=== PATIENT | male | born 1940 | race African-American/Black ===

== ENCOUNTER 2018-03-11 13:27 | Inpatient (IN) ==
[2018-03-11] MEDS ORDERED: ONDANSETRON 4 MG/2 ML VIAL IV STA (14:20)
[2018-03-11 14:52] LABS: Basophils % 0.1 % (0.0-0.8); Eosinophils % 0.1 % (0.00-10.9); Hematocrit 29.9 VOL% (42.0-52.0); Hemoglobin 10.5 GM/DL (14.0-18.0); Immature Granulocytes % 0.4 %; Immature Granulocytes Absolute 0.05 #; Lymphocytes # 0.5 10*3/uL (1.4-4.0); Lymphocytes % 3.7 % (21.2-54.2); Mean Corpuscular HGB Conc 35.1 GM/DL (32-36); Mean Corpuscular Hemoglobin 30 PG (27-34); Mean Corpuscular Volume 84.7 FL (87-102); Mean Platelet Volume 9.9 FL (9.6-12.0); Monocytes # 1.2 10*3/uL (0.11-0.8); Monocytes % 9.2 % (1.7-12.7); Neutrophils # 11.1 10*3/uL (1.4-7.4); Neutrophils % 86.5 % (38.7-73.9); Platelet Count 233 T/CUMM (130-400); Red Blood Count 3.53 MC/CUMM (3.8-5.5); Red Cell Distribution Width 13.9 % (9.3-17.3); White Blood Count 12.8 T/CUMM (4-12)
[2018-03-11 15:23] LABS: Lymphocytes 1 % (20-55); Segmented Neutrophils 95 % (50-85); Total Cells Counted 100
[2018-03-11 15:24] LABS: Anisocytosis 1+
[2018-03-11 15:25] LABS: Target Cells Few
[2018-03-11 15:28] LABS: Apearance,Urine CLEAR (Clear); Bacteria,Urine Occasional /HPF (Few); Blood, Urine Negative (Negative); Glucose,Urine (UA) Negative (Negative); Ketones,Urine 20 mg/dL (Negative); Mucus,Urine Occasional /LPF (Occasional); Nitrite,Urine Negative (Negative); Protein,Urine 30 MG/DL; Squamous Epithelial Cell,Urine Occasional /HPF (0-10); Urine Color Amber (Yellow)
[2018-03-11 15:28] LABS: Hypochromasia Slight; Microcytosis Slight
[2018-03-11 15:29] LABS: Bilirubin,Urine Moderate mg/dL (Negative)
[2018-03-11 15:31] LABS: Platelet Estimate Normal
[2018-03-11 15:40] LABS: Albumin 2.9 G/DL (3.4-5.0); Bilirubin,Total 9.1 MG/DL (0.2-1.0); Calcium 9.4 MG/DL (8.5-10.1); Osmolality,Calculated 277.5 MOS/KG (273-304); Total Protein 7.5 G/DL (6.4-8.3)
[2018-03-11] MEDS ORDERED: ACETAMINOPHEN 325 MG TABLET PO PRN (16:24)
[2018-03-11] MEDS ORDERED: ONDANSETRON 4 MG/2 ML VIAL IV PRN (16:24)
[2018-03-11] MEDS: SODIUM CHLORIDE 0.9% 1,000 ML IV SCH (17:52)
[2018-03-11] MEDS ORDERED: MORPHINE 4 MG/1 ML VIAL IV PRN (17:58)
[2018-03-12 02:51] LABS: Basophils % 0.2 % (0.0-0.8); Eosinophils % 0.2 % (0.00-10.9); Hematocrit 28.1 VOL% (42.0-52.0); Hemoglobin 9.8 GM/DL (14.0-18.0); Immature Granulocytes % 0.4 %; Immature Granulocytes Absolute 0.04 #; Lymphocytes # 1.5 10*3/uL (1.4-4.0); Lymphocytes % 14.8 % (21.2-54.2); Mean Corpuscular HGB Conc 34.9 GM/DL (32-36); Mean Corpuscular Hemoglobin 29 PG (27-34); Mean Corpuscular Volume 82.6 FL (87-102); Mean Platelet Volume 10.5 FL (9.6-12.0); Monocytes # 1.4 10*3/uL (0.11-0.8); Monocytes % 13.1 % (1.7-12.7); Neutrophils # 7.4 10*3/uL (1.4-7.4); Neutrophils % 71.3 % (38.7-73.9); Platelet Count 235 T/CUMM (130-400); White Blood Count 10.3 T/CUMM (4-12)
[2018-03-12 02:59] LABS: PT Patient Result 10.7 SECS
[2018-03-12 03:10] LABS: Bilirubin,Direct 6.58 MG/DL (0.0-0.20); Bilirubin,Indirect 1.6 MG/DL (0.0-1.0); Bilirubin,Total 8.2 MG/DL (0.2-1.0)
[2018-03-12 03:20] LABS: Albumin 2.5 G/DL (3.4-5.0); Bilirubin,Total 7.8 MG/DL (0.2-1.0); Calcium 9.1 MG/DL (8.5-10.1); Osmolality,Calculated 281.1 MOS/KG (273-304); Potassium 3.6 MMOL/L (3.5-5.1); Risk Ratio 4.3; Total Protein 6.3 G/DL (6.4-8.3); VLDL CHOLESTEROL 12.6 MG/DL
[2018-03-12] MEDS: PANTOPRAZOLE 40 MG TABLET PO SCH (10:21)
[2018-03-12] MEDS: SODIUM CHLORIDE 0.9% 1,000 ML IV SCH ×2 (10:22→21:49)
[2018-03-12] MEDS ORDERED: INDOMETHACIN SUPP 50 MG SUPP RECTAL ONE (11:56)
[2018-03-12] MEDS ORDERED: fentaNYL 100 MCG/2 ML VIAL ONE (12:22)
[2018-03-12] MEDS ORDERED: GLUCAGON 1 MG VIAL ONE (13:11)
[2018-03-13 04:55] LABS: Basophils % 0.2 % (0.0-0.8); Eosinophils % 0.3 % (0.00-10.9); Hemoglobin 8.9 GM/DL (14.0-18.0); Immature Granulocytes % 0.5 %; Immature Granulocytes Absolute 0.04 #; Lymphocytes # 1.2 10*3/uL (1.4-4.0); Lymphocytes % 14.2 % (21.2-54.2); Mean Corpuscular HGB Conc 34.2 GM/DL (32-36); Mean Corpuscular Hemoglobin 29 PG (27-34); Mean Corpuscular Volume 83.3 FL (87-102); Mean Platelet Volume 10.5 FL (9.6-12.0); Monocytes # 1.1 10*3/uL (0.11-0.8); Monocytes % 12.4 % (1.7-12.7); Neutrophils # 6.3 10*3/uL (1.4-7.4); Neutrophils % 72.4 % (38.7-73.9); Platelet Count 222 T/CUMM (130-400); Red Blood Count 3.12 MC/CUMM (3.8-5.5); Red Cell Distribution Width 14.2 % (9.3-17.3); White Blood Count 8.7 T/CUMM (4-12)
[2018-03-13 05:21] LABS: Albumin 2.3 G/DL (3.4-5.0); Bilirubin,Total 6.9 MG/DL (0.2-1.0); Calcium 8.7 MG/DL (8.5-10.1); Osmolality,Calculated 284.8 MOS/KG (273-304); Total Protein 6.1 G/DL (6.4-8.3)
[2018-03-13] MEDS ORDERED: ROCURONIUM 100 MG/10 ML VIAL IV ONE (09:00)
[2018-03-13] MEDS ORDERED: PROPOFOL 200 MG/20 ML VIAL IV ONE (09:00)
[2018-03-13] MEDS ORDERED: PHENYLEPHRINE 1 MG/10 ML SYRINGE IV ONE (09:00)
[2018-03-13] MEDS ORDERED: LIDOCAINE 1% 5 ML VIAL ONE (09:00)
[2018-03-13] MEDS ORDERED: SUCCINYLCHOLINE 200 MG/10 ML VIAL ONE (09:00)
[2018-03-13] MEDS ORDERED: ONDANSETRON 4 MG/2 ML VIAL ONE (09:00)
[2018-03-13] MEDS: PANTOPRAZOLE 40 MG TABLET PO SCH (10:07)
[2018-03-13] MEDS: SODIUM CHLORIDE 0.9% 1,000 ML IV SCH (11:31)
[2018-03-14] MEDS: SODIUM CHLORIDE 0.9% 1,000 ML IV SCH (00:51)
[2018-03-14] MEDS: PANTOPRAZOLE 40 MG TABLET PO SCH (09:14)
[2018-03-14] MEDS ORDERED: diphenhydrAMINE 50 MG/1 ML VIAL IV ONE (10:00)
[2018-03-14] MEDS ORDERED: methylPREDNISolone SOD SUC 125 MG/2 ML VIAL IV ONE (10:00)
[2018-03-14] MEDS ORDERED: FAMOTIDINE 20 MG/2 ML VIAL IV SCH (10:00)
[2018-03-14 11:57] VITALS: BP 145/76
== END 2018-03-14 14:20 | disposition home or self-care (01) | DRG 436 ==
LOC: N.ED 13:27 → N.EDINP 16:24 → N.2E 18:00
PROVIDERS: ADMIT Internal Medicine; ATTEND Internal Medicine

== ENCOUNTER 2018-04-02 10:02 | Inpatient (IN) ==
[2018-04-02 10:43] LABS: Basophils % 0.4 % (0.0-0.8); Eosinophils % 0.4 % (0.00-10.9); Hematocrit 34.4 VOL% (42.0-52.0); Hemoglobin 11.3 GM/DL (14.0-18.0); Immature Granulocytes % 0.4 %; Immature Granulocytes Absolute 0.03 #; Lymphocytes # 1.7 10*3/uL (1.4-4.0); Lymphocytes % 20.5 % (21.2-54.2); Mean Corpuscular HGB Conc 32.8 GM/DL (32-36); Mean Corpuscular Hemoglobin 29 PG (27-34); Mean Corpuscular Volume 86.6 FL (87-102); Mean Platelet Volume 9.3 FL (9.6-12.0); Monocytes % 12.2 % (1.7-12.7); Neutrophils # 5.6 10*3/uL (1.4-7.4); Neutrophils % 66.1 % (38.7-73.9); Platelet Count 287 T/CUMM (130-400); Red Blood Count 3.97 MC/CUMM (3.8-5.5); Red Cell Distribution Width 13.3 % (9.3-17.3); White Blood Count 8.5 T/CUMM (4-12)
[2018-04-02 11:07] LABS: Albumin 3.5 G/DL (3.4-5.0); Bilirubin,Total 1.4 MG/DL (0.2-1.0); Calcium 9.7 MG/DL (8.5-10.1); Potassium 3.6 MMOL/L (3.5-5.1); Total Protein 8.2 G/DL (6.4-8.3)
[2018-04-02 11:42] LABS: Apearance,Urine CLEAR (Clear); Bilirubin,Urine Negative (Negative); Blood, Urine Small mg/dL (Negative); Glucose,Urine (UA) Negative (Negative); Ketones,Urine 5 mg/dL (Negative); Mucus,Urine Occasional /LPF (Occasional); Nitrite,Urine Negative (Negative); Protein,Urine 30 MG/DL; RBC,Urine 1 /HPF (0-4); Squamous Epithelial Cell,Urine Occasional /HPF (0-10); Urine Color Yellow (Yellow); Urine Specific Gravity 1.011 (1.001-1.035); WBC,Urine 6 /HPF (0-6)
[2018-04-02 11:51] LABS: Barbiturates Screen,Urine Negative (Negative); Benzodiazepines Screen,Urine Negative (Negative); Cannabinoid Screen,Urine Negative (Negative); Opiate Screen,Urine Negative (Negative); Phencyclidine Screen,Urine Negative (Negative)
[2018-04-02] MEDS ORDERED: ACETAMINOPHEN 325 MG TABLET PO PRN (13:49)
[2018-04-02] MEDS ORDERED: LACTULOSE 20 GM/30 ML UDCUP PO PRN (13:49)
[2018-04-02 14:18] LABS: Thyroid Stimulating Hormone 1.42 uIU/ml (0.358-3.74)
[2018-04-02] MEDS: ENOXAPARIN 40 MG/0.4 ML SYRINGE SUBCUT SCH (14:18)
[2018-04-02] MEDS: cefTRIAXone 1,000 MG in SYRINGE 1 EACH IV SCH (14:19)
[2018-04-02 15:40] LABS: % Iron Saturation 20.1 % (18-50)
[2018-04-02 15:49] LABS: Folate 15.4 NG/ML (5.4-24.0)
[2018-04-02] MEDS ORDERED: LORazepam 2 MG/1 ML VIAL ONE ×2 (20:57→21:00)
[2018-04-02] MEDS ORDERED: LORazepam 2 MG/1 ML VIAL IV ONE ×3 (20:59→21:35)
[2018-04-02] MEDS ORDERED: LORazepam 2 MG/1 ML VIAL IM ONE (21:02)
[2018-04-02] MEDS ORDERED: PHENYTOIN INJ 1,000 MG in SODIUM CHLORIDE 0.9% 100 ML IV ONE (21:08)
[2018-04-02] MEDS ORDERED: THIAMINE INJ 100 MG, FOLIC ACID INJ 1 MG, MULTIVITAMIN INJ 10 ML in SODIUM CHLORIDE 0.9... IV SCH (21:30)
[2018-04-02] MEDS: DEXTROSE 5% NACL 0.45% 1,000 ML IV SCH (21:35)
[2018-04-02 21:42] LABS: Basophils % 0.3 % (0.0-0.8); Eosinophils # 0.1 10*3/uL (0.0-0.87); Eosinophils % 0.9 % (0.00-10.9); Hematocrit 31.4 VOL% (42.0-52.0); Hemoglobin 10.6 GM/DL (14.0-18.0); Immature Granulocytes % 0.5 %; Immature Granulocytes Absolute 0.04 #; Lymphocytes % 23.6 % (21.2-54.2); Mean Corpuscular HGB Conc 33.8 GM/DL (32-36); Mean Corpuscular Hemoglobin 29 PG (27-34); Mean Corpuscular Volume 86.5 FL (87-102); Mean Platelet Volume 9.9 FL (9.6-12.0); Monocytes # 0.9 10*3/uL (0.11-0.8); Monocytes % 10.7 % (1.7-12.7); Neutrophils # 5.5 10*3/uL (1.4-7.4); Platelet Count 290 T/CUMM (130-400); Red Blood Count 3.63 MC/CUMM (3.8-5.5); Red Cell Distribution Width 13.7 % (9.3-17.3); White Blood Count 8.6 T/CUMM (4-12)
[2018-04-02] MEDS ORDERED: LORazepam 2 MG/1 ML VIAL IV PRN (21:47)
[2018-04-02 21:58] LABS: Calcium 9.1 MG/DL (8.5-10.1)
[2018-04-02 21:59] LABS: Blood Urea Nitrogen 9 MG/DL (7-18); Glucose 102 MG/DL (74-106); Osmolality,Calculated 286.7 MOS/KG (273-304); Potassium 3.6 MMOL/L (3.5-5.1); Sodium 145 MMOL/L (136-145)
[2018-04-02] MEDS: PHENYTOIN 100 MG/2 ML VIAL IV SCH (23:07)
[2018-04-03 05:31] LABS: Albumin 2.7 G/DL (3.4-5.0); Bilirubin,Total 0.9 MG/DL (0.2-1.0); Calcium 8.3 MG/DL (8.5-10.1); Osmolality,Calculated 282.8 MOS/KG (273-304); Potassium 3.6 MMOL/L (3.5-5.1); Total Protein 6.8 G/DL (6.4-8.3); VLDL CHOLESTEROL 9.8 MG/DL
[2018-04-03] MEDS: DEXTROSE 5% NACL 0.45% 1,000 ML IV SCH ×3 (05:43→22:14)
[2018-04-03] MEDS: PHENYTOIN 100 MG/2 ML VIAL IV SCH ×3 (05:44→22:14)
[2018-04-03 06:06] LABS: Basophils % 0.4 % (0.0-0.8); Eosinophils # 0.1 10*3/uL (0.0-0.87); Hematocrit 28.5 VOL% (42.0-52.0); Hemoglobin 9.6 GM/DL (14.0-18.0); Immature Granulocytes % 0.3 %; Immature Granulocytes Absolute 0.02 #; Lymphocytes # 1.7 10*3/uL (1.4-4.0); Lymphocytes % 24.1 % (21.2-54.2); Mean Corpuscular HGB Conc 33.7 GM/DL (32-36); Mean Corpuscular Hemoglobin 29 PG (27-34); Mean Corpuscular Volume 86.1 FL (87-102); Mean Platelet Volume 9.5 FL (9.6-12.0); Monocytes # 0.9 10*3/uL (0.11-0.8); Monocytes % 11.9 % (1.7-12.7); Neutrophils # 4.4 10*3/uL (1.4-7.4); Neutrophils % 61.3 % (38.7-73.9); Platelet Count 230 T/CUMM (130-400); Red Blood Count 3.31 MC/CUMM (3.8-5.5); Red Cell Distribution Width 13.5 % (9.3-17.3); White Blood Count 7.2 T/CUMM (4-12)
[2018-04-03] MEDS ORDERED: THIAMINE 200 MG/2 ML VIAL IV SCH (09:00)
[2018-04-03] MEDS ORDERED: ACETAMINOPHEN 325 MG TABLET PO ONE (10:51)
[2018-04-03] MEDS ORDERED: diphenhydrAMINE CAP 25 MG CAPSULE PO ONE (10:51)
[2018-04-03] MEDS ORDERED: INFLUENZA VIRUS VACCINE 0.5 ML SYRINGE IM ONE (11:35)
[2018-04-03 14:24] LABS: Appearance,CSF Clear; Lymphocytes,CSF 67 %; Monocytes,CSF 33 %; Red Blood Cell,CSF < 1 C/CUMM; White Blood Cell,CSF 2 C/CUMM
[2018-04-03] MEDS: cefTRIAXone 1,000 MG in SYRINGE 1 EACH IV SCH (14:57)
[2018-04-03] MEDS ORDERED: PHENYLEPHRINE DRIP 40 MG/250 ML PREMIX IV ONE (21:14)
[2018-04-03] MEDS ORDERED: PHENYLEPHRINE DRIP 40 MG/250 ML PREMIX IV PRN (21:30)
[2018-04-03] MEDS ORDERED: SODIUM CHLORIDE 0.9% 1,000 ML IV ONE (21:31)
[2018-04-03 21:36] LABS: Basophils % 0.2 % (0.0-0.8); Eosinophils # 0.1 10*3/uL (0.0-0.87); Eosinophils % 1.1 % (0.00-10.9); Hematocrit 29.3 VOL% (42.0-52.0); Hemoglobin 9.5 GM/DL (14.0-18.0); Immature Granulocytes % 0.2 %; Immature Granulocytes Absolute 0.02 #; Lymphocytes # 2.8 10*3/uL (1.4-4.0); Mean Corpuscular HGB Conc 32.4 GM/DL (32-36); Mean Corpuscular Hemoglobin 28 PG (27-34); Mean Corpuscular Volume 87.7 FL (87-102); Mean Platelet Volume 9.6 FL (9.6-12.0); Monocytes # 1.1 10*3/uL (0.11-0.8); Monocytes % 10.7 % (1.7-12.7); Neutrophils # 6.4 10*3/uL (1.4-7.4); Neutrophils % 60.8 % (38.7-73.9); Platelet Count 234 T/CUMM (130-400); Red Blood Count 3.34 MC/CUMM (3.8-5.5); Red Cell Distribution Width 13.6 % (9.3-17.3); White Blood Count 10.5 T/CUMM (4-12)
[2018-04-03] MEDS: MEMANTINE 5 MG TABLET PO SCH (22:14)
[2018-04-03] MEDS: QUEtiapine 25 MG TABLET PO SCH (22:14)
[2018-04-04 00:31] LABS: Lactic Acid 2.2 MMOL/L (0.4-2.0)
[2018-04-04] MEDS: DEXTROSE 5% NACL 0.45% 1,000 ML IV SCH ×3 (03:59→18:41)
[2018-04-04] MEDS: PHENYTOIN 100 MG/2 ML VIAL IV SCH ×3 (05:47→20:34)
[2018-04-04] MEDS: MEMANTINE 5 MG TABLET PO SCH ×2 (09:07→20:24)
[2018-04-04] MEDS: THIAMINE 200 MG/2 ML VIAL IV SCH (09:10)
[2018-04-04 09:59] LABS: HIV Antigen/Antibody Result Nonreactive (Nonreactive)
[2018-04-04] MEDS: cefTRIAXone 1,000 MG in SYRINGE 1 EACH IV SCH (14:50)
[2018-04-04] MEDS: QUEtiapine 25 MG TABLET PO SCH (20:24)
[2018-04-05] MEDS: DEXTROSE 5% NACL 0.45% 1,000 ML IV SCH ×4 (01:33→21:00)
[2018-04-05 03:40] LABS: Basophils % 0.2 % (0.0-0.8); Eosinophils # 0.1 10*3/uL (0.0-0.87); Eosinophils % 1.4 % (0.00-10.9); Hematocrit 31.6 VOL% (42.0-52.0); Hemoglobin 10.4 GM/DL (14.0-18.0); Immature Granulocytes % 0.3 %; Immature Granulocytes Absolute 0.03 #; Mean Corpuscular HGB Conc 32.9 GM/DL (32-36); Mean Corpuscular Hemoglobin 28 PG (27-34); Mean Corpuscular Volume 86.3 FL (87-102); Mean Platelet Volume 9.7 FL (9.6-12.0); Monocytes # 1.1 10*3/uL (0.11-0.8); Neutrophils # 6.1 10*3/uL (1.4-7.4); Neutrophils % 65.1 % (38.7-73.9); Platelet Count 203 T/CUMM (130-400); Red Blood Count 3.66 MC/CUMM (3.8-5.5); Red Cell Distribution Width 13.2 % (9.3-17.3); White Blood Count 9.4 T/CUMM (4-12)
[2018-04-05 03:55] LABS: Calcium 8.8 MG/DL (8.5-10.1); Osmolality,Calculated 280.1 MOS/KG (273-304); Potassium 2.9 MMOL/L (3.5-5.1)
[2018-04-05] MEDS: PHENYTOIN 100 MG/2 ML VIAL IV SCH (06:24)
[2018-04-05] MEDS: MEMANTINE 5 MG TABLET PO SCH ×2 (08:28→20:59)
[2018-04-05] MEDS: THIAMINE 200 MG/2 ML VIAL IV SCH (08:28)
[2018-04-05] MEDS ORDERED: POTASSIUM CHLORIDE RIDER 10 MEQ in PREMIX 1 EACH IV PRN (09:00)
[2018-04-05] MEDS: POTASSIUM CHLORIDE 20 MEQ TABLET PO PRN ×3 (09:14→14:20)
[2018-04-05] MEDS: TAMSULOSIN 0.4 MG CAPSULE PO SCH (11:19)
[2018-04-05] MEDS: cefTRIAXone 1,000 MG in SYRINGE 1 EACH IV SCH (14:18)
[2018-04-05] MEDS: PHENYTOIN ER 100 MG CAPSULE PO SCH ×2 (14:18→21:00)
[2018-04-05] MEDS: QUEtiapine 25 MG TABLET PO SCH (20:59)
[2018-04-06 06:53] LABS: Basophils % 0.2 % (0.0-0.8); Eosinophils # 0.3 10*3/uL (0.0-0.87); Eosinophils % 4.2 % (0.00-10.9); Hematocrit 27.1 VOL% (42.0-52.0); Immature Granulocytes % 1.1 %; Immature Granulocytes Absolute 0.09 #; Lymphocytes # 2.2 10*3/uL (1.4-4.0); Lymphocytes % 26.3 % (21.2-54.2); Mean Corpuscular HGB Conc 33.2 GM/DL (32-36); Mean Corpuscular Hemoglobin 29 PG (27-34); Mean Corpuscular Volume 85.8 FL (87-102); Mean Platelet Volume 9.9 FL (9.6-12.0); Monocytes # 1.1 10*3/uL (0.11-0.8); Monocytes % 13.4 % (1.7-12.7); Neutrophils # 4.5 10*3/uL (1.4-7.4); Neutrophils % 54.8 % (38.7-73.9); Platelet Count 177 T/CUMM (130-400); Red Blood Count 3.16 MC/CUMM (3.8-5.5); Red Cell Distribution Width 13.3 % (9.3-17.3); White Blood Count 8.2 T/CUMM (4-12)
[2018-04-06 07:29] LABS: Calcium 7.9 MG/DL (8.5-10.1); Osmolality,Calculated 283.8 MOS/KG (273-304); Potassium 3.3 MMOL/L (3.5-5.1)
[2018-04-06] MEDS: MEMANTINE 5 MG TABLET PO SCH ×2 (09:52→20:31)
[2018-04-06] MEDS: TAMSULOSIN 0.4 MG CAPSULE PO SCH (09:52)
[2018-04-06] MEDS: POTASSIUM CHLORIDE 20 MEQ TABLET PO SCH (09:52)
[2018-04-06] MEDS: PHENYTOIN ER 100 MG CAPSULE PO SCH ×3 (09:53→20:32)
[2018-04-06] MEDS: THIAMINE 100 MG TABLET PO SCH (09:53)
[2018-04-06] MEDS: ENOXAPARIN 40 MG/0.4 ML SYRINGE SUBCUT SCH (15:56)
[2018-04-06] MEDS: cefTRIAXone 1,000 MG in SYRINGE 1 EACH IV SCH (15:57)
[2018-04-06] MEDS: QUEtiapine 25 MG TABLET PO SCH (20:31)
[2018-04-06] MEDS: DEXTROSE 5% NACL 0.45% 1,000 ML IV SCH (20:32)
[2018-04-06] MEDS ORDERED: ONDANSETRON 4 MG/2 ML VIAL IV PRN (21:43)
[2018-04-07 05:04] LABS: Basophils % 0.3 % (0.0-0.8); Eosinophils # 0.4 10*3/uL (0.0-0.87); Eosinophils % 6.1 % (0.00-10.9); Hematocrit 27.2 VOL% (42.0-52.0); Hemoglobin 8.9 GM/DL (14.0-18.0); Immature Granulocytes % 0.3 %; Immature Granulocytes Absolute 0.02 #; Lymphocytes # 1.8 10*3/uL (1.4-4.0); Lymphocytes % 27.4 % (21.2-54.2); Mean Corpuscular HGB Conc 32.7 GM/DL (32-36); Mean Corpuscular Hemoglobin 28 PG (27-34); Mean Corpuscular Volume 86.6 FL (87-102); Mean Platelet Volume 9.6 FL (9.6-12.0); Monocytes # 0.9 10*3/uL (0.11-0.8); Monocytes % 14.2 % (1.7-12.7); Neutrophils # 3.3 10*3/uL (1.4-7.4); Neutrophils % 51.7 % (38.7-73.9); Platelet Count 186 T/CUMM (130-400); Red Blood Count 3.14 MC/CUMM (3.8-5.5); Red Cell Distribution Width 13.4 % (9.3-17.3); White Blood Count 6.4 T/CUMM (4-12)
[2018-04-07 05:20] LABS: Calcium 8.2 MG/DL (8.5-10.1); Potassium 3.4 MMOL/L (3.5-5.1)
[2018-04-07] MEDS: DEXTROSE 5% NACL 0.45% 1,000 ML IV SCH ×2 (07:29→08:52)
[2018-04-07] MEDS: POTASSIUM CHLORIDE 20 MEQ TABLET PO SCH (08:47)
[2018-04-07] MEDS: THIAMINE 100 MG TABLET PO SCH (08:47)
[2018-04-07] MEDS: TAMSULOSIN 0.4 MG CAPSULE PO SCH (08:47)
[2018-04-07] MEDS: MEMANTINE 5 MG TABLET PO SCH (08:48)
[2018-04-07] MEDS: PHENYTOIN ER 100 MG CAPSULE PO SCH ×3 (08:48→21:15)
[2018-04-07] MEDS: AMOXICILLIN/CLAV 875 MG TABLET PO SCH ×2 (10:21→21:15)
[2018-04-07] MEDS: ENOXAPARIN 40 MG/0.4 ML SYRINGE SUBCUT SCH (14:10)
[2018-04-07] MEDS: POTASSIUM CHLORIDE 20 MEQ TABLET PO PRN (17:30)
[2018-04-07 18:21] LABS: West Nile Virus Ab, IgG, CSF Negative (Negative); West Nile Virus Ab, IgM, CSF Negative (Negative)
[2018-04-07] MEDS: MEMANTINE 10 MG TABLET PO SCH (21:15)
[2018-04-07] MEDS: QUEtiapine 25 MG TABLET PO SCH (21:15)
[2018-04-08 06:07] LABS: Basophils % 0.3 % (0.0-0.8); Eosinophils # 0.4 10*3/uL (0.0-0.87); Eosinophils % 6.1 % (0.00-10.9); Hemoglobin 9.3 GM/DL (14.0-18.0); Immature Granulocytes % 0.2 %; Immature Granulocytes Absolute 0.01 #; Lymphocytes # 2.1 10*3/uL (1.4-4.0); Lymphocytes % 34.3 % (21.2-54.2); Mean Corpuscular HGB Conc 33.2 GM/DL (32-36); Mean Corpuscular Hemoglobin 28 PG (27-34); Mean Corpuscular Volume 85.6 FL (87-102); Mean Platelet Volume 9.8 FL (9.6-12.0); Monocytes # 0.8 10*3/uL (0.11-0.8); Monocytes % 13.5 % (1.7-12.7); Neutrophils # 2.8 10*3/uL (1.4-7.4); Neutrophils % 45.6 % (38.7-73.9); Platelet Count 204 T/CUMM (130-400); Red Blood Count 3.27 MC/CUMM (3.8-5.5); Red Cell Distribution Width 13.3 % (9.3-17.3); White Blood Count 6.1 T/CUMM (4-12)
[2018-04-08 06:25] LABS: Calcium 8.3 MG/DL (8.5-10.1); Osmolality,Calculated 278.3 MOS/KG (273-304); Potassium 3.8 MMOL/L (3.5-5.1)
[2018-04-08] MEDS: AMOXICILLIN/CLAV 875 MG TABLET PO SCH (08:05)
[2018-04-08] MEDS: TAMSULOSIN 0.4 MG CAPSULE PO SCH (08:05)
[2018-04-08] MEDS: POTASSIUM CHLORIDE 20 MEQ TABLET PO SCH (08:06)
[2018-04-08] MEDS: THIAMINE 100 MG TABLET PO SCH (08:06)
[2018-04-08] MEDS: MEMANTINE 10 MG TABLET PO SCH (08:06)
[2018-04-08] MEDS: PHENYTOIN ER 100 MG CAPSULE PO SCH (08:06)
[2018-04-08 11:42] VITALS: BP 124/76
== END 2018-04-08 13:00 | disposition home or self-care (01) | DRG 689 ==
LOC: N.ED 10:02 → SUATTDRO 13:49 → N.EDINP 13:49 → N.2W 15:50 → N.2E 17:40 → N.ICU 21:08 → N.5E 04-05 14:01
PROVIDERS: ADMIT Hospitalist; ATTEND Internal Medicine

== ENCOUNTER 2018-06-20 10:46 | Inpatient (IN) ==
[2018-06-20] MEDS ORDERED: SODIUM CHLORIDE 0.9% 500 ML IV STA (11:20)
[2018-06-20] MEDS ORDERED: ONDANSETRON 4 MG/2 ML VIAL IV STA (11:20)
[2018-06-20 13:25] LABS: Basophils % 0.1 % (0.0-0.8); Hematocrit 31.5 VOL% (42.0-52.0); Immature Granulocytes % 0.8 %; Immature Granulocytes Absolute 0.18 #; Lymphocytes # 0.6 10*3/uL (1.4-4.0); Lymphocytes % 2.5 % (21.2-54.2); Mean Corpuscular HGB Conc 34.9 GM/DL (32-36); Mean Corpuscular Hemoglobin 28 PG (27-34); Mean Corpuscular Volume 81.4 FL (87-102); Mean Platelet Volume 10.2 FL (9.6-12.0); Monocytes # 1.9 10*3/uL (0.11-0.8); Monocytes % 8.9 % (1.7-12.7); Neutrophils # 18.9 10*3/uL (1.4-7.4); Neutrophils % 87.7 % (38.7-73.9); Platelet Count 266 T/CUMM (130-400); Red Blood Count 3.87 MC/CUMM (3.8-5.5); Red Cell Distribution Width 14.4 % (9.3-17.3); White Blood Count 21.6 T/CUMM (4-12)
[2018-06-20 13:55] LABS: Albumin 2.5 G/DL (3.4-5.0); Bilirubin,Total 9.2 MG/DL (0.2-1.0); Calcium 9.3 MG/DL (8.5-10.1); Osmolality,Calculated 270.1 MOS/KG (273-304); Potassium 3.7 MMOL/L (3.5-5.1); Total Protein 7.7 G/DL (6.4-8.3)
[2018-06-20 14:19] LABS: Apearance,Urine Slightly Hazy (Clear); Bilirubin,Urine Moderate mg/dL (Negative); Blood, Urine Small mg/dL (Negative); Glucose,Urine (UA) Negative (Negative); Granular Casts,Urine 5 /LPF (0-1); Ketones,Urine Negative (Negative); Nitrite,Urine Negative (Negative); Protein,Urine 30 MG/DL; RBC,Urine <1 /HPF (0-4); Squamous Epithelial Cell,Urine Occasional /HPF (0-10); Urine Color Amber (Yellow); Urine Specific Gravity 1.012 (1.001-1.035); WBC,Urine 1 /HPF (0-6)
[2018-06-20] MEDS ORDERED: diphenhydrAMINE 50 MG/1 ML VIAL ONE (14:52)
[2018-06-20] MEDS ORDERED: methylPREDNISolone SOD SUC 125 MG/2 ML VIAL ONE (14:52)
[2018-06-20] MEDS ORDERED: diphenhydrAMINE 50 MG/1 ML VIAL IV STA (14:58)
[2018-06-20] MEDS ORDERED: methylPREDNISolone SOD SUC 125 MG/2 ML VIAL IV STA (14:58)
[2018-06-20 15:48] LABS: Lymphocytes 5 % (20-55); Segmented Neutrophils 88 % (50-85); Total Cells Counted 100
[2018-06-20 15:54] LABS: Anisocytosis Slight; Hypochromasia Slight; Microcytosis Slight
[2018-06-20 15:55] LABS: Target Cells Few
[2018-06-20 15:56] LABS: Platelet Estimate Normal
[2018-06-20] MEDS ORDERED: ACETAMINOPHEN 325 MG TABLET PO PRN (16:55)
[2018-06-20] MEDS ORDERED: DOCUSATE SODIUM 100 MG CAPSULE PO PRN (16:55)
[2018-06-20] MEDS ORDERED: ONDANSETRON 4 MG/2 ML VIAL IV PRN (16:55)
[2018-06-20] MEDS ORDERED: ALBUTEROL/IPRATROPIUM 3 ML NEB RESP TX PRN (17:03)
[2018-06-20] MEDS: DEXTROSE 5% NACL 0.45% 1,000 ML IV SCH (21:08)
[2018-06-20] MEDS: PIPERACILLIN/TAZOBACTAM 2,250 MG in SODIUM CHLORIDE 0.9% 100 ML IV SCH (21:09)
[2018-06-20] MEDS: ENOXAPARIN 30 MG/0.3 ML SYRINGE SUBCUT SCH (21:09)
[2018-06-21] MEDS: PIPERACILLIN/TAZOBACTAM 2,250 MG in SODIUM CHLORIDE 0.9% 100 ML IV SCH ×3 (04:25→21:02)
[2018-06-21 05:27] LABS: Basophils % 0.2 % (0.0-0.8); Hematocrit 31.2 VOL% (42.0-52.0); Immature Granulocytes % 0.4 %; Immature Granulocytes Absolute 0.07 #; Lymphocytes # 0.4 10*3/uL (1.4-4.0); Lymphocytes % 2.3 % (21.2-54.2); Mean Corpuscular HGB Conc 35.3 GM/DL (32-36); Mean Corpuscular Hemoglobin 29 PG (27-34); Mean Corpuscular Volume 80.8 FL (87-102); Mean Platelet Volume 11.7 FL (9.6-12.0); Monocytes # 1.1 10*3/uL (0.11-0.8); Monocytes % 5.9 % (1.7-12.7); Neutrophils # 16.9 10*3/uL (1.4-7.4); Neutrophils % 91.2 % (38.7-73.9); Platelet Count 206 T/CUMM (130-400); Red Blood Count 3.86 MC/CUMM (3.8-5.5); Red Cell Distribution Width 14.3 % (9.3-17.3); White Blood Count 18.5 T/CUMM (4-12)
[2018-06-21 06:02] LABS: Lymphocytes 4 % (20-55); Platelet Estimate Adequate; Segmented Neutrophils 95 % (50-85); Total Cells Counted 100
[2018-06-21 06:03] LABS: Hypochromasia Slight; Target Cells Few
[2018-06-21 06:06] LABS: Calcium 8.2 MG/DL (8.5-10.1); Osmolality,Calculated 276.8 MOS/KG (273-304); Potassium 4.2 MMOL/L (3.5-5.1); Thyroid Stimulating Hormone 0.519 uIU/ml (0.358-3.74)
[2018-06-21] MEDS: PANTOPRAZOLE 40 MG TABLET PO SCH (09:00)
[2018-06-21] MEDS: DEXTROSE 5% NACL 0.45% 1,000 ML IV SCH ×2 (11:20→11:21)
[2018-06-21] MEDS ORDERED: GENTAMICIN INJ 80 MG in PREMIX 1 EACH IV ONE (13:00)
[2018-06-21 14:06] LABS: Carcinoembryonic Antigen 0.6 NG/ML (0.0-5.0)
[2018-06-21] MEDS: ENOXAPARIN 30 MG/0.3 ML SYRINGE SUBCUT SCH (16:42)
[2018-06-21 17:29] LABS: Cancer Antigen 19-9 3255.8 U/ML (0-37)
[2018-06-22] MEDS: DEXTROSE 5% NACL 0.45% 1,000 ML IV SCH ×3 (02:05→14:27)
[2018-06-22] MEDS: PIPERACILLIN/TAZOBACTAM 2,250 MG in SODIUM CHLORIDE 0.9% 100 ML IV SCH (03:41)
[2018-06-22 06:01] LABS: Basophils % 0.1 % (0.0-0.8); Hemoglobin 9.3 GM/DL (14.0-18.0); Immature Granulocytes % 1.1 %; Immature Granulocytes Absolute 0.15 #; Lymphocytes # 0.7 10*3/uL (1.4-4.0); Lymphocytes % 4.8 % (21.2-54.2); Mean Corpuscular HGB Conc 35.8 GM/DL (32-36); Mean Corpuscular Hemoglobin 28 PG (27-34); Mean Corpuscular Volume 78.5 FL (87-102); Mean Platelet Volume 10.8 FL (9.6-12.0); Monocytes # 1.2 10*3/uL (0.11-0.8); Monocytes % 8.5 % (1.7-12.7); Neutrophils # 11.7 10*3/uL (1.4-7.4); Neutrophils % 85.5 % (38.7-73.9); Platelet Count 190 T/CUMM (130-400); Red Blood Count 3.31 MC/CUMM (3.8-5.5); Red Cell Distribution Width 14.1 % (9.3-17.3); White Blood Count 13.7 T/CUMM (4-12)
[2018-06-22 06:37] LABS: Albumin 1.7 G/DL (3.4-5.0); Bilirubin,Direct 7.27 MG/DL (0.0-0.20); Bilirubin,Indirect 1.2 MG/DL (0.0-1.0); Bilirubin,Total 8.5 MG/DL (0.2-1.0); Osmolality,Calculated 282.4 MOS/KG (273-304); Potassium 3.5 MMOL/L (3.5-5.1); Total Protein 5.9 G/DL (6.4-8.3)
[2018-06-22] MEDS: PANTOPRAZOLE 40 MG TABLET PO SCH (09:07)
[2018-06-22 09:47] LABS: Lymphocytes 6 % (20-55); Polychromasia Slight; Segmented Neutrophils 87 % (50-85); Total Cells Counted 100
[2018-06-22 09:48] LABS: Hypochromasia 1+; Platelet Estimate Adequate
[2018-06-22] MEDS: PIPERACILLIN/TAZOBACTAM 3,375 MG in SODIUM CHLORIDE 0.9% 100 ML IV SCH ×2 (12:21→19:54)
[2018-06-22] MEDS: GENTAMICIN INJ 100 ML IV SCH ×2 (14:27→23:47)
[2018-06-22] MEDS: ENOXAPARIN 30 MG/0.3 ML SYRINGE SUBCUT SCH (17:56)
[2018-06-23] MEDS: PIPERACILLIN/TAZOBACTAM 3,375 MG in SODIUM CHLORIDE 0.9% 100 ML IV SCH ×3 (03:44→20:49)
[2018-06-23] MEDS: DEXTROSE 5% NACL 0.45% 1,000 ML IV SCH ×4 (04:50→21:39)
[2018-06-23 06:10] LABS: Basophils % 0.1 % (0.0-0.8); Hematocrit 28.3 VOL% (42.0-52.0); Immature Granulocytes % 0.9 %; Immature Granulocytes Absolute 0.14 #; Lymphocytes # 1.3 10*3/uL (1.4-4.0); Lymphocytes % 7.9 % (21.2-54.2); Mean Corpuscular HGB Conc 35.3 GM/DL (32-36); Mean Corpuscular Hemoglobin 28 PG (27-34); Mean Corpuscular Volume 79.3 FL (87-102); Mean Platelet Volume 10.5 FL (9.6-12.0); Monocytes # 1.8 10*3/uL (0.11-0.8); Monocytes % 11.4 % (1.7-12.7); Neutrophils # 12.6 10*3/uL (1.4-7.4); Neutrophils % 79.7 % (38.7-73.9); Platelet Count 188 T/CUMM (130-400); Red Blood Count 3.57 MC/CUMM (3.8-5.5); White Blood Count 15.8 T/CUMM (4-12)
[2018-06-23 06:18] LABS: INR 1.2; PT Patient Result 12.5 SECS
[2018-06-23 06:24] LABS: Albumin 1.7 G/DL (3.4-5.0); Bilirubin,Direct 8.01 MG/DL (0.0-0.20); Bilirubin,Indirect 1.7 MG/DL (0.0-1.0); Bilirubin,Total 9.7 MG/DL (0.2-1.0); Calcium 8.3 MG/DL (8.5-10.1); Osmolality,Calculated 281.4 MOS/KG (273-304); Potassium 3.6 MMOL/L (3.5-5.1); Total Protein 6.2 G/DL (6.4-8.3)
[2018-06-23 06:34] LABS: Hypochromasia 1+; Lymphocytes 10 % (20-55); Ovalocytes Slight; Platelet Estimate Adequate; Segmented Neutrophils 79 % (50-85); Total Cells Counted 100
[2018-06-23] MEDS: GENTAMICIN INJ 100 ML IV SCH ×2 (07:05→15:52)
[2018-06-23] MEDS ORDERED: INDOMETHACIN SUPP 50 MG SUPP RECTAL ONE (11:20)
[2018-06-23] MEDS: PANTOPRAZOLE 40 MG TABLET PO SCH (11:28)
[2018-06-23] MEDS ORDERED: fentaNYL 100 MCG/2 ML VIAL ONE (14:01)
[2018-06-23] MEDS: ENOXAPARIN 30 MG/0.3 ML SYRINGE SUBCUT SCH (20:49)
[2018-06-24] MEDS: GENTAMICIN INJ 100 ML IV SCH ×2 (01:03→08:55)
[2018-06-24] MEDS: PIPERACILLIN/TAZOBACTAM 3,375 MG in SODIUM CHLORIDE 0.9% 100 ML IV SCH ×3 (04:08→20:00)
[2018-06-24 06:00] LABS: Basophils % 0.1 % (0.0-0.8); Hematocrit 24.5 VOL% (42.0-52.0); Hemoglobin 8.6 GM/DL (14.0-18.0); Immature Granulocytes % 0.7 %; Immature Granulocytes Absolute 0.08 #; Lymphocytes # 1.2 10*3/uL (1.4-4.0); Lymphocytes % 10.9 % (21.2-54.2); Mean Corpuscular HGB Conc 35.1 GM/DL (32-36); Mean Corpuscular Hemoglobin 28 PG (27-34); Mean Corpuscular Volume 78.8 FL (87-102); Monocytes # 1.1 10*3/uL (0.11-0.8); Neutrophils # 8.4 10*3/uL (1.4-7.4); Neutrophils % 78.3 % (38.7-73.9); Platelet Count 162 T/CUMM (130-400); Red Blood Count 3.11 MC/CUMM (3.8-5.5); Red Cell Distribution Width 14.4 % (9.3-17.3); White Blood Count 10.8 T/CUMM (4-12)
[2018-06-24 06:12] LABS: Albumin 1.4 G/DL (3.4-5.0); Bilirubin,Direct 7.15 MG/DL (0.0-0.20); Bilirubin,Total 8.1 MG/DL (0.2-1.0); Calcium 7.9 MG/DL (8.5-10.1); Osmolality,Calculated 285.1 MOS/KG (273-304); Potassium 3.4 MMOL/L (3.5-5.1); Total Protein 5.5 G/DL (6.4-8.3)
[2018-06-24 06:26] LABS: Hypochromasia 1+; Ovalocytes Slight; Platelet Estimate Adequate; Target Cells Few
[2018-06-24] MEDS: PANTOPRAZOLE 40 MG TABLET PO SCH (08:55)
[2018-06-24] MEDS: POLYETHYLENE GLYCOL POWDER 17 GM PACK PO SCH (15:18)
[2018-06-24] MEDS: ENOXAPARIN 30 MG/0.3 ML SYRINGE SUBCUT SCH (17:47)
[2018-06-24] MEDS: DEXTROSE 5% NACL 0.45% 1,000 ML IV SCH (20:01)
[2018-06-25] MEDS: DEXTROSE 5% NACL 0.45% 1,000 ML IV SCH ×2 (02:35→08:30)
[2018-06-25] MEDS: PIPERACILLIN/TAZOBACTAM 3,375 MG in SODIUM CHLORIDE 0.9% 100 ML IV SCH (03:24)
[2018-06-25 06:21] LABS: Basophils % 0.1 % (0.0-0.8); Eosinophils % 0.2 % (0.00-10.9); Hemoglobin 8.9 GM/DL (14.0-18.0); Immature Granulocytes % 0.5 %; Immature Granulocytes Absolute 0.05 #; Lymphocytes # 1.5 10*3/uL (1.4-4.0); Mean Corpuscular HGB Conc 35.6 GM/DL (32-36); Mean Corpuscular Hemoglobin 28 PG (27-34); Mean Corpuscular Volume 77.9 FL (87-102); Mean Platelet Volume 10.9 FL (9.6-12.0); Monocytes # 1.1 10*3/uL (0.11-0.8); Monocytes % 11.2 % (1.7-12.7); Neutrophils # 6.7 10*3/uL (1.4-7.4); Platelet Count 168 T/CUMM (130-400); Red Blood Count 3.21 MC/CUMM (3.8-5.5); Red Cell Distribution Width 14.4 % (9.3-17.3); White Blood Count 9.4 T/CUMM (4-12)
[2018-06-25 06:47] LABS: Lymphocytes 9 % (20-55); Segmented Neutrophils 81 % (50-85); Total Cells Counted 100
[2018-06-25 06:48] LABS: Hypochromasia 1+; Platelet Estimate Adequate; Target Cells Few
[2018-06-25 06:51] LABS: Albumin 1.3 G/DL (3.4-5.0); Bilirubin,Direct 7.11 MG/DL (0.0-0.20); Bilirubin,Indirect 1.2 MG/DL (0.0-1.0); Bilirubin,Total 8.3 MG/DL (0.2-1.0); Calcium 7.9 MG/DL (8.5-10.1); Osmolality,Calculated 278.4 MOS/KG (273-304); Potassium 3.2 MMOL/L (3.5-5.1); Total Protein 5.9 G/DL (6.4-8.3)
[2018-06-25] MEDS: PANTOPRAZOLE 40 MG TABLET PO SCH (08:29)
[2018-06-25] MEDS: POLYETHYLENE GLYCOL POWDER 17 GM PACK PO SCH (08:30)
[2018-06-25 09:46] VITALS: BP 132/75
== END 2018-06-25 12:12 | disposition home or self-care (01) | DRG 919 ==
LOC: N.ED 10:46 → N.EDINP 16:55 → N.5E 19:12
PROVIDERS: ADMIT Internal Medicine; ATTEND Internal Medicine
PROC: ERCPWST (ICD-10-PCS; 2018-06-23 12:20)

== ENCOUNTER 2018-07-14 08:15 | Inpatient (IN) ==
[2018-07-14] MEDS ORDERED: SODIUM CHLORIDE 0.9% 1,000 ML IV STA ×2 (08:44→11:51)
[2018-07-14 09:01] LABS: Basophils % 0.1 % (0.0-0.8); Eosinophils % 0.1 % (0.00-10.9); Hematocrit 24.8 VOL% (42.0-52.0); Hemoglobin 8.1 GM/DL (14.0-18.0); Immature Granulocytes % 0.5 %; Immature Granulocytes Absolute 0.09 #; Lymphocytes # 0.6 10*3/uL (1.4-4.0); Lymphocytes % 3.5 % (21.2-54.2); Mean Corpuscular HGB Conc 32.7 GM/DL (32-36); Mean Corpuscular Hemoglobin 29 PG (27-34); Mean Corpuscular Volume 88.6 FL (87-102); Monocytes # 1.2 10*3/uL (0.11-0.8); Monocytes % 7.1 % (1.7-12.7); Neutrophils % 88.7 % (38.7-73.9); Platelet Count 462 T/CUMM (130-400); Red Cell Distribution Width 16.8 % (9.3-17.3)
[2018-07-14 09:11] LABS: PT Patient Result 10.9 SECS
[2018-07-14 09:22] LABS: Band Neutrophils 7 % (0-10); Lymphocytes 5 % (20-55); Segmented Neutrophils 82 % (50-85); Total Cells Counted 100
[2018-07-14 09:23] LABS: Anisocytosis 1+; Macrocytosis Slight; Platelet Estimate Normal
[2018-07-14 09:37] LABS: Bilirubin,Total 7.5 MG/DL (0.2-1.0); Osmolality,Calculated 267.2 MOS/KG (273-304); Total Protein 7.6 G/DL (6.4-8.3)
[2018-07-14 09:48] LABS: Apearance,Urine CLEAR (Clear); Bacteria,Urine Occasional /HPF (Few); Bilirubin,Urine Negative (Negative); Blood, Urine Negative (Negative); Glucose,Urine (UA) Negative (Negative); Hyaline Casts,Urine 1 /LPF (0-3); Ketones,Urine Negative (Negative); Mucus,Urine Occasional /LPF (Occasional); Nitrite,Urine Negative (Negative); Protein,Urine Negative; RBC,Urine <1 /HPF (0-4); Squamous Epithelial Cell,Urine Occasional /HPF (0-10); Urine Color Amber (Yellow); Urine Specific Gravity 1.006 (1.001-1.035)
[2018-07-14 10:09] LABS: Barbiturates Screen,Urine Negative (Negative); Benzodiazepines Screen,Urine Negative (Negative); Cannabinoid Screen,Urine Negative (Negative); Opiate Screen,Urine Negative (Negative); Phencyclidine Screen,Urine Negative (Negative)
[2018-07-14] MEDS ORDERED: DOCUSATE SODIUM 100 MG CAPSULE PO PRN (11:02)
[2018-07-14] MEDS ORDERED: ONDANSETRON 4 MG/2 ML VIAL IV PRN (11:02)
[2018-07-14] MEDS ORDERED: LEVOFLOXACIN INJ 750 MG in PREMIX 1 EACH IV SCH (11:30)
[2018-07-14] MEDS: LACTULOSE 20 GM/30 ML UDCUP PO SCH ×4 (14:31→23:43)
[2018-07-14] MEDS: SODIUM CHLORIDE 0.9% 1,000 ML IV SCH (15:00)
[2018-07-14] MEDS: PANTOPRAZOLE 40 MG TABLET PO SCH (15:03)
[2018-07-15] MEDS: SODIUM CHLORIDE 0.9% 1,000 ML IV SCH ×3 (00:59→22:58)
[2018-07-15] MEDS: LACTULOSE 20 GM/30 ML UDCUP PO SCH ×6 (04:36→23:54)
[2018-07-15 05:46] LABS: Basophils % 0.1 % (0.0-0.8); Eosinophils % 0.2 % (0.00-10.9); Hematocrit 19.8 VOL% (42.0-52.0); Immature Granulocytes % 0.5 %; Immature Granulocytes Absolute 0.05 #; Lymphocytes # 1.4 10*3/uL (1.4-4.0); Lymphocytes % 13.5 % (21.2-54.2); Mean Corpuscular HGB Conc 32.8 GM/DL (32-36); Mean Corpuscular Hemoglobin 29 PG (27-34); Mean Corpuscular Volume 87.2 FL (87-102); Mean Platelet Volume 9.8 FL (9.6-12.0); Monocytes # 0.9 10*3/uL (0.11-0.8); Monocytes % 8.1 % (1.7-12.7); Neutrophils # 8.2 10*3/uL (1.4-7.4); Neutrophils % 77.6 % (38.7-73.9); Platelet Count 335 T/CUMM (130-400); Red Blood Count 2.27 MC/CUMM (3.8-5.5); Red Cell Distribution Width 16.7 % (9.3-17.3); White Blood Count 10.6 T/CUMM (4-12)
[2018-07-15 06:25] LABS: Albumin 1.5 G/DL (3.4-5.0); Calcium 8.2 MG/DL (8.5-10.1); Osmolality,Calculated 269.8 MOS/KG (273-304); Potassium 3.9 MMOL/L (3.5-5.1); Thyroid Stimulating Hormone 1.76 uIU/ml (0.358-3.74)
[2018-07-15 07:02] LABS: Hemoglobin 6.5 GM/DL (14.0-18.0)
[2018-07-15 07:12] LABS: Cancer Antigen 19-9 195.2 U/ML (0-37); Carcinoembryonic Antigen < 0.5 NG/ML (0.0-5.0)
[2018-07-15] MEDS: PANTOPRAZOLE 40 MG TABLET PO SCH (09:19)
[2018-07-15] MEDS: LEVOFLOXACIN INJ 500 MG in PREMIX 1 EACH IV SCH (09:20)
[2018-07-16] MEDS: SODIUM CHLORIDE 0.9% 1,000 ML IV SCH ×2 (01:54→16:11)
[2018-07-16] MEDS: LACTULOSE 20 GM/30 ML UDCUP PO SCH ×6 (03:50→23:00)
[2018-07-16 04:50] LABS: Basophils % 0.2 % (0.0-0.8); Eosinophils # 0.1 10*3/uL (0.0-0.87); Eosinophils % 0.5 % (0.00-10.9); Immature Granulocytes % 0.7 %; Immature Granulocytes Absolute 0.06 #; Lymphocytes # 1.6 10*3/uL (1.4-4.0); Lymphocytes % 17.6 % (21.2-54.2); Mean Corpuscular HGB Conc 33.1 GM/DL (32-36); Mean Corpuscular Hemoglobin 29 PG (27-34); Mean Corpuscular Volume 87.3 FL (87-102); Mean Platelet Volume 10.2 FL (9.6-12.0); Monocytes # 0.9 10*3/uL (0.11-0.8); Neutrophils # 6.6 10*3/uL (1.4-7.4); Platelet Count 350 T/CUMM (130-400); Red Blood Count 2.04 MC/CUMM (3.8-5.5); Red Cell Distribution Width 16.6 % (9.3-17.3); White Blood Count 9.2 T/CUMM (4-12)
[2018-07-16 05:08] LABS: Albumin 1.6 G/DL (3.4-5.0); Bilirubin,Total 4.4 MG/DL (0.2-1.0); Calcium 7.9 MG/DL (8.5-10.1); Osmolality,Calculated 277.3 MOS/KG (273-304); Potassium 3.8 MMOL/L (3.5-5.1); Total Protein 5.8 G/DL (6.4-8.3)
[2018-07-16 05:24] LABS: Hematocrit 17.8 VOL% (42.0-52.0); Hemoglobin 5.9 GM/DL (14.0-18.0)
[2018-07-16] MEDS ORDERED: SODIUM CHLORIDE 0.9% 1,000 ML IV PRN (08:07)
[2018-07-16] MEDS: PANTOPRAZOLE 40 MG TABLET PO SCH (09:25)
[2018-07-16] MEDS: LEVOFLOXACIN INJ 500 MG in PREMIX 1 EACH IV SCH (09:25)
[2018-07-16] MEDS: ZINC OXIDE PASTE 113 GM TUBE TOP SCH ×2 (16:10→20:07)
[2018-07-16] MEDS: KETOROLAC 30 MG/1 ML VIAL IV PRN (20:02)
[2018-07-17] MEDS: LACTULOSE 20 GM/30 ML UDCUP PO SCH ×3 (03:31→13:15)
[2018-07-17] MEDS: SODIUM CHLORIDE 0.9% 1,000 ML IV SCH (03:32)
[2018-07-17 06:18] LABS: Basophils % 0.1 % (0.0-0.8); Eosinophils % 0.1 % (0.00-10.9); Hematocrit 24.3 VOL% (42.0-52.0); Immature Granulocytes % 0.6 %; Immature Granulocytes Absolute 0.06 #; Lymphocytes # 1.5 10*3/uL (1.4-4.0); Mean Corpuscular HGB Conc 32.9 GM/DL (32-36); Mean Corpuscular Hemoglobin 29 PG (27-34); Mean Corpuscular Volume 86.8 FL (87-102); Mean Platelet Volume 9.7 FL (9.6-12.0); Monocytes # 1.2 10*3/uL (0.11-0.8); Monocytes % 12.2 % (1.7-12.7); Neutrophils # 7.2 10*3/uL (1.4-7.4); Platelet Count 332 T/CUMM (130-400); Red Cell Distribution Width 16.1 % (9.3-17.3)
[2018-07-17 06:39] LABS: Albumin 1.4 G/DL (3.4-5.0); Bilirubin,Total 6.4 MG/DL (0.2-1.0); Calcium 8.3 MG/DL (8.5-10.1); Osmolality,Calculated 279.1 MOS/KG (273-304); Potassium 3.7 MMOL/L (3.5-5.1); Total Protein 5.5 G/DL (6.4-8.3)
[2018-07-17] MEDS: ZINC OXIDE PASTE 113 GM TUBE TOP SCH (08:18)
[2018-07-17] MEDS: PANTOPRAZOLE 40 MG TABLET PO SCH (08:18)
[2018-07-17] MEDS ORDERED: LEVOFLOXACIN 750 MG TABLET PO SCH (09:00)
[2018-07-17] MEDS: KETOROLAC 30 MG/1 ML VIAL IV PRN (10:48)
[2018-07-17 11:52] VITALS: BP 126/63
== END 2018-07-17 16:08 | disposition hospice, home (50) | DRG 435 ==
LOC: EDBD → EDUNIT# → N.ED 08:15 → SUATTDRO 11:02 → N.EDINP 11:02 → N.4E 12:56
PROVIDERS: ADMIT Family Medicine; ATTEND Hospitalist